=== PATIENT | male | born 1970 | race Caucasian/White ===

== ENCOUNTER 2022-09-25 07:57 | Emergency (ER) | payer BC, MEDICAID, OTHER ==
[2022-09-25 09:06] VITALS: BP 156/96
[2022-09-25 09:13] LABS: Urine Bacteria NONE SEEN /hpf (None Seen); Urine Blood TRACE /uL (Negative); Urine Mucus FEW (None Seen); Urine Specific Gravity 1.024 (1.001-1.035); Urine WBC 2 /hpf (0 - 3)
[2022-09-25] MEDS ORDERED: DexAMETHasone SOD PHOS 10MG/1ML VIAL INJ IM ONE (09:30)
[2022-09-25] MEDS ORDERED: CEPH-510 PO (09:39)
== END 2022-09-25 09:48 | disposition home or self-care (01) ==
LOC: ER 07:57
DX: L03.211 Cellulitis of face (principal); K21.9 Gastro-esophageal reflux disease without esophagitis; Z88.8 Allergy status to other drugs, medicaments and biological substances
CPT/HCPCS: 81001; 96372; 99283; J1100